=== PATIENT | female | born 1945 | race Caucasian/White ===

== ENCOUNTER 2016-09-26 18:46 | Observation (INO) | payer OTHER, MEDICARE ==
--- NOTE | 2016-09-26 19:25 | PDOC ---
History of Present Illness - General History Source: Patient Exam Limitations: No Limitations - History of Present Illness Initial Comments: 09/26/16 19:41 The patient is a 70 year old female with a significant past medical history of sciatica who presents to the ED with complaints of intermittent back, chest and neck pain for one hour. The patient reports she was sitting on her desk when she developed mid sternal chest pain radiating to her upper back pain that lasted for about 10 minutes. Patient describes her back and chest pain as achy. She then reports she developed sharp right sided neck pain radiating to her right jaw 10 minutes after. Patient states her symptoms are worsened when she sits and alleviated when standing. Upon evaluation patient reports her pain is resolved. She states she had lunch 5 hours prior to the start of present symptoms and has been home since. Denies a similar symptoms in the past. Denies diaphoresis. Denies palpitations or shortness of breath. Denies arm pain or jaw pain. Denies fevers or chills. Denies abdominal pain, nausea, vomiting, or diarrhea. Denies any other symptoms. PAST MEDICAL HISTORY: Sciatica PAST SURGICAL HISTORY: no significant history FAMILY HISTORY: no pertinent history SOCIAL HISTORY: Pt lives with family and is employed. MEDICATIONS: reviewed ALLERGIES: Ibuprofen (rash) General: No fevers or chills, no weakness, no weight loss HEENT: No change in vision. No sore throat,. No ear pain CardioVascular: + chest pain. No shortness of breath Respiratory:No cough, or wheezing. Gastrointestinal: no nausea, vomiting, diarrhea or constipation, No rectal bleeding Genitourinary: No dysuria, hematuria, or frequency Musculoskeletal: + back pain, neck pain. No joint or muscle swelling Neurologic: No headache, vertigo, dizziness or loss of consciousness Psychiatric: nor depression Skin: No rashes or easy bruising Endocrine: no increased thirst or abnormal weight change Allergic: no skin or latex allergy All other systems reviewed and normal General: Well-nourished well-developed individual, no acute distress HEENT: Throat: Normal, tonsils normal, no erythema or exudate Neck: Supple, no meningeal signs, no lymphadenopathy Eyes::Pupils equal reactive and round, extraocular motion intact Chest: Nontender to palpation Cardiac: S1-S2 normal, regular rate and rhythm, no murmurs rubs or gallops Respiratory: Lungs clear to auscultation bilateral Abdomen: Soft, nondistended, normal bowel sounds, nontender to palpation diffusely Extremities: Warm, dry, no cyanosis, clubbing, or edema Skin: No rashes Neuro: Alert and oriented x3, nonfocal exam, grossly intact, normal gait Psych: Normal mood and affect <Al Arroyo - Last Filed: 09/26/16 19:40> - General History Source: Patient Exam Limitations: No Limitations - History of Present Illness Initial Comments: 09/26/16 20:21 A portion of this note was documented by scribe services under my direction. I have reviewed the details of the note, within reason, and agree with the documentation. The case summary and management plan written by me. Assessment and plan: This is a 70-year-old female who comes in complaining of substernal chest pain radiating to her back and her right side of her jaw. Symptoms lasted approximately 20 minutes and then resolved. Here in the emergency room patient denies any pain. Patient had no associated symptoms. Patient only risk factor is a family history and her mother who had an CA at a young age. However her mother also was a heavy smoker. Patient's heart score is 4 patient's EKG showed normal sinus rhythm with questionable anterior old CA otherwise normal intervals and no acute ST T wave changes Patient will be admitted to a observation telemetry bed to rule her out as her heart score is 4. <Du Arshad I - Last Filed: 09/26/16 20:24> - General Chief Complaint: Chest Pain Stated Complaint: chest,neck,back pain Time Seen by Provider: 09/26/16 19:07 Past History <Al Arroyo - Last Filed: 09/26/16 19:40> - Past Medical History Other medical history: hrt - Psycho/Social/Smoking Cessation Hx Suicidal Ideation: No Smoking History: Never smoked Have you smoked in the past 12 months: No Information on smoking cessation initiated: No Hx Alcohol Use: No Drug/Substance Use Hx: No Substance Use Type: Alcohol <Du Arshad I - Last Filed: 09/26/16 20:24> - Past Medical History Allergies/Adverse Reactions: Allergies Allergy/AdvReac Type Severity Reaction Status Date / Time ibuprofen [From Advil] Allergy Hives Verified 09/26/16 19:01 Home Medications: Ambulatory Orders Estradiol [Minivelle] 1 each TD WEEKLY 09/26/16 Progesterone,Micronized [Crinone] 1.125 gm VG MONTHLY 09/26/16 *Physical Exam - Vital Signs Last Vital Signs Temp Pulse Resp BP Pulse Ox 98.3 F 87 20 148/87 98 09/26/16 19:00 09/26/16 19:00 09/26/16 19:00 09/26/16 19:00 09/26/16 19:00 <Al Arroyo - Last Filed: 09/26/16 19:40> - Vital Signs Last Vital Signs Temp Pulse Resp BP Pulse Ox 98.3 F 87 20 148/87 98 09/26/16 19:00 09/26/16 19:00 09/26/16 19:00 09/26/16 19:00 09/26/16 19:00 <Du Arshad I - Last Filed: 09/26/16 20:24> Heart Score/ECG Review - History History: Moderately suspicious - Electrocardiogram EKG: Normal - Age Age: >/= 65 - Risk Factors Risk Factors Heart Score: Yes Positive family hx of cardiac disease Based on the list above the patient has:: 1-2 risk factors - Troponin Troponin: </= normal limit - Score Heart Score - Total: 4 <Du Arshad I - Last Filed: 09/26/16 20:24> ED Treatment Course - LABORATORY CBC & Chemistry Diagram: 09/26/16 19:46 09/26/16 19:46 <Du Arshad I - Last Filed: 09/26/16 20:24> *DC/Admit/Observation/Transfer - Attestations Scribe Attestion: 09/26/16 19:41 Documentation prepared by Al Arroyo, acting as medical policy specialist for Du Arshad MD <Al Arroyo - Last Filed: 09/26/16 19:40> - Discharge Dispostion Admit: Yes <Du Arshad I - Last Filed: 09/26/16 20:24> Diagnosis at time of Disposition: Chest pain Qualifiers: Chest pain type: unspecified Qualified Code(s): R07.9 - Chest pain, unspecified
[2016-09-26] MEDS ORDERED: ACETAMINOPHEN 500 MG TABLET (FP) PO ONE (19:26)
[2016-09-26] MEDS ORDERED: ACETAMINOPHEN 325 MG TABLET (FP) ONE (19:36)
[2016-09-26 20:10] LABS: CPK(DFH) 101 IU/L (26-140)
[2016-09-26 20:10] LABS: ALK PHOS 42 U/L (32-92); ANION GAP 7 (8-16); BASOPHIL 0.4 % (0-2.0); BILIRUBIN,TOTAL 0.2 mg/dl (0.2-1.0); CALCIUM 9.5 mg/dl (8.4-10.2); CO2 27 mmol/L (22-28); EOSINOPHIL 1.5 % (0-4.5); GLUCOSE,RANDOM 97 mg/dl (74-106); MCH 32.8 pg (25.7-33.7); MCHC 34.3 g/dl (32.0-36.0); MEAN CELL VOLUME 95.6 fl (80-96); MEAN PLT VOLUME 10.1 fl (7.5-11.1); NEUTROPHILS 69.3 % (42.8-82.8); PLATELET COUNT 229 K/MM3 (134-434); RDW 11.7 % (11.6-15.6); SGOT/AST 20 U/L (10-42); SGPT/ALT 13 U/L (10-40); TOT PROT 6.9 g/dl (6.4-8.3); WHITE BLOOD COUNT 7.1 K/mm3 (4.0-10.8)
[2016-09-26 20:26] LABS: TROPONIN I (DFP) < 0.03 ng/ml (0.03-0.50)
[2016-09-26] MEDS ORDERED: diphenhydrAMINE HCL 50 MG CAPSULE PO ONE (21:04)
[2016-09-26] MEDS ORDERED: diphenhydrAMINE HCL 25 MG CAPSULE (FP) PO ONE (21:45)
[2016-09-26 23:19] VITALS: BMI 24.0
--- NOTE | 2016-09-26 23:35 | HP ---
CHIEF COMPLAINT: chest pain PCP: Dr. Bhavna Londono at [facility] HISTORY OF PRESENT ILLNESS: This is a 70 year old female with a past medical history of sciatica and shingles presented with chest pain. Pain has resolved since 930pm. Pt states pain was not exacerbated by movement, cough or deep breathing. States pain was midsternal and epigastric and radiated to back and then up to right ear. No further pain at present and denies any SOB, dizziness, palpitations, N/V/D. Pt was recently seen by PCP and application programmer analyst for contact dermatitis which she has been taking benadryl and triamcinolone cream x 3 days with improvement. ER course was notable for: (1) troponin neg x 1 (2) given tylenol for pain with relief Recent Travel: pt denies PAST MEDICAL HISTORY: sciatica shingles PAST SURGICAL HISTORY: pt denies Social History: Smoking: pt denies, mother was a heavy smoker in the house when she was a child Alcohol: 4 glasses of wine weekly Drugs: pt denies Family History: mother with ID age 49, first CVA/TIA age 59, age 77, also had BrCA, hypothyroid father age 77, dementia one brother with HTN, 3 other siblings no medical problems, + substance abuse issues Allergies ibuprofen [From Advil] Allergy (Verified 09/26/16 19:01) Hives HOME MEDICATIONS: 3 Medication Instructions Recorded Estradiol [Minivelle] 1 each TD WEEKLY 09/26/16 Progesterone,Micronized [Crinone] 1.125 gm VG MONTHLY 09/26/16 REVIEW OF SYSTEMS CONSTITUTIONAL: Absent: fever, chills, diaphoresis, generalized weakness, malaise, loss of appetite, weight change HEENT: Absent: rhinorrhea, nasal congestion, throat pain, throat swelling, difficulty swallowing, mouth swelling, ear pain, eye pain, visual changes CARDIOVASCULAR: Present: chest pain Absent: syncope, palpitations, irregular heart rate, lightheadedness, peripheral edema RESPIRATORY: Absent: cough, shortness of breath, dyspnea with exertion, orthopnea, wheezing, stridor, hemoptysis GASTROINTESTINAL: Absent: abdominal pain, abdominal distension, nausea, vomiting, diarrhea, constipation, melena, hematochezia GENITOURINARY: Absent: dysuria, frequency, urgency, hesitancy, hematuria, flank pain, genital pain MUSCULOSKELETAL: Absent: myalgia, arthralgia, joint swelling, back pain, neck pain SKIN: Absent: rash, itching, pallor HEMATOLOGIC/IMMUNOLOGIC: Absent: easy bleeding, easy bruising, lymphadenopathy, frequent infections ENDOCRINE: Absent: unexplained weight gain, unexplained weight loss, heat intolerance, cold intolerance NEUROLOGIC: Absent: headache, focal weakness or paresthesias, dizziness, unsteady gait, seizure, mental status changes, bladder or bowel incontinence PSYCHIATRIC: Absent: anxiety, depression, suicidal or homicidal ideation, hallucinations. PHYSICAL EXAMINATION Vital Signs - 24 hr 3 09/26/16 09/26/16 22:56 23:00 Temperature 97.9 F 97.9 F Pulse Rate 74 74 Respiratory 18 18 Rate Blood Pressure 124/62 124/62 O2 Sat by Pulse 100 Oximetry (%) GENERAL: Awake, alert, and fully oriented, in no acute distress. HEAD: Normal with no signs of trauma. EYES: Pupils equal, round and reactive to light, extraocular movements intact, sclera anicteric, conjunctiva clear. No lid lag. EARS, NOSE, THROAT: Ears normal, nares patent, oropharynx clear without exudates. Moist mucous membranes. NECK: Normal range of motion, supple without lymphadenopathy, JVD, or masses. LUNGS: Breath sounds equal, clear to auscultation bilaterally. No wheezes, and no crackles. No accessory muscle use. HEART: Regular rate and rhythm, normal S1 and S2 without murmur, rub or gallop. ABDOMEN: Soft, nontender, not distended, normoactive bowel sounds, no guarding, no rebound, no masses. No hepatomegaly or splenomegaly. MUSCULOSKELETAL: Normal range of motion at all joints. No bony deformities or tenderness. No CVA tenderness. UPPER EXTREMITIES: 2+ pulses, warm, well-perfused. No cyanosis. No clubbing. No peripheral edema. LOWER EXTREMITIES: 2+ pulses, warm, well-perfused. No calf tenderness. No peripheral edema. NEUROLOGICAL: Cranial nerves II-XII intact. Normal speech. Normal gait. PSYCHIATRIC: Cooperative. Good eye contact. Appropriate mood and affect. SKIN: Warm, dry, normal turgor, no lesions noted, normal capillary refill. + maculopapular rash on bilat lower legs, fading Laboratory Results - last 24 hr 3 09/26/16 09/26/16 09/26/16 19:40 19:46 19:46 WBC 7.1 RBC 4.24 Hgb 13.9 Hct 40.6 MCV 95.6 MCHC 34.3 RDW 11.7 Plt Count 229 MPV 10.1 Neutrophils % 69.3 Lymphocytes % 23.2 Monocytes % 5.6 Eosinophils % 1.5 Basophils % 0.4 Sodium 137 Potassium 4.0 Chloride 103 Carbon Dioxide 27 Anion Gap 7 L BUN 19 H Creatinine 1.0 Creat Clearance w eGFR 55.14 Random Glucose 97 Calcium 9.5 Total Bilirubin 0.2 AST 20 ALT 13 Alkaline Phosphatase 42 Creatine Kinase 101 Troponin I < 0.03 L Total Protein 6.9 Albumin 4.0 ECG: NSR, rate 72, QTC 453, No acute ST/T changes, ? septal infarct, age indetermined CXR: No obvious infiltrates or effusions, official read pending ASSESSMENT/PLAN: 70yF with PMH of sciatica and shingles presented with CP. She has been admitted for further observation. Chest pain - Heart score 4 - troponin neg x 1, trend x 2 more - if troponins neg, would DC home and refer to PCP for further o/p cardiac workup Contact dermatitis, improving - benadryl PRN DVT PPX - deferred, expected LOS <48h FEN - no IVF, tolerating po - repeat labs in am - regular diet Dispo: pt requires inpatient observation for management of her emergent condition. Visit type - Emergency Visit Emergency Visit: Yes ED Registration Date: 09/26/16 Care time: The patient presented to the Emergency Department on the above date and was hospitalized for further evaluation of their emergent condition. - New Patient This patient is new to me today: Yes Date on this admission: 09/26/16 - Critical Care Critical Care patient: No
[2016-09-27 04:09] LABS: TROPONIN I < 0.02 ng/ml (0.00-0.05)
[2016-09-27 06:19] VITALS: BP 112/57; PULSE 75; TEMP 98.4
[2016-09-27] MEDS ORDERED: diphenhydrAMINE HCL 25 MG CAPSULE (FP) PO PRN (06:59)
[2016-09-27 08:02] LABS: BASOPHIL 0.8 % (0-2.0); EOSINOPHIL 3.1 % (0-4.5); MCH 32.9 pg (25.7-33.7); MCHC 33.7 g/dl (32.0-36.0); MEAN CELL VOLUME 97.6 fl (80-96); MEAN PLT VOLUME 9.6 fl (7.5-11.1); NEUTROPHILS 51.8 % (42.8-82.8); PLATELET COUNT 218 K/MM3 (134-434); RDW 11.5 % (11.6-15.6)
[2016-09-27 08:30] LABS: COCKROFT - GAULT 46.767; PHOSPHOROUS 3.5 mg/dl (2.5-4.6)
[2016-09-27 11:53] LABS: CPK(DFH) 78 IU/L (26-140)
[2016-09-27 12:04] LABS: TROPONIN I (DFP) < 0.03 ng/ml (0.03-0.50)
--- NOTE | 2016-09-27 12:10 | HP ---
CHIEF COMPLAINT: PCP: HISTORY OF PRESENT ILLNESS: ER course was notable for: (1) (2) (3) Recent Travel: PAST MEDICAL HISTORY: PAST SURGICAL HISTORY: Social History: Smoking: Alcohol: Drugs: Family History: Allergies ibuprofen [From Advil] Allergy (Verified 09/26/16 19:01) Hives HOME MEDICATIONS: Home Medications Medication Instructions Recorded Estradiol [Minivelle] 1 each TD WEEKLY 09/26/16 Progesterone,Micronized [Crinone] 1.125 gm VG MONTHLY 09/26/16 REVIEW OF SYSTEMS CONSTITUTIONAL: Absent: fever, chills, diaphoresis, generalized weakness, malaise, loss of appetite, weight change HEENT: Absent: rhinorrhea, nasal congestion, throat pain, throat swelling, difficulty swallowing, mouth swelling, ear pain, eye pain, visual changes CARDIOVASCULAR: Absent: chest pain, syncope, palpitations, irregular heart rate, lightheadedness , peripheral edema RESPIRATORY: Absent: cough, shortness of breath, dyspnea with exertion, orthopnea, wheezing, stridor, hemoptysis GASTROINTESTINAL: Absent: abdominal pain, abdominal distension, nausea, vomiting, diarrhea, constipation, melena, hematochezia GENITOURINARY: Absent: dysuria, frequency, urgency, hesitancy, hematuria, flank pain, genital pain MUSCULOSKELETAL: Absent: myalgia, arthralgia, joint swelling, back pain, neck pain SKIN: Absent: rash, itching, pallor HEMATOLOGIC/IMMUNOLOGIC: Absent: easy bleeding, easy bruising, lymphadenopathy, frequent infections ENDOCRINE: Absent: unexplained weight gain, unexplained weight loss, heat intolerance, cold intolerance NEUROLOGIC: Absent: headache, focal weakness or paresthesias, dizziness, unsteady gait, seizure, mental status changes, bladder or bowel incontinence PSYCHIATRIC: Absent: anxiety, depression, suicidal or homicidal ideation, hallucinations. PHYSICAL EXAMINATION Vital Signs - 24 hr 09/26/16 09/26/16 09/27/16 22:56 23:00 01:09 Temperature 97.9 F 97.9 F 98 F Pulse Rate 74 74 64 Respiratory 18 18 18 Rate Blood Pressure 124/62 124/62 118/60 O2 Sat by Pulse 100 Oximetry (%) 09/27/16 09/27/16 09/27/16 05:09 06:18 08:34 Temperature 98.2 F 98.4 F Pulse Rate 68 75 Respiratory 18 18 18 Rate Blood Pressure 122/64 112/57 O2 Sat by Pulse 100 99 99 Oximetry (%) GENERAL: Awake, alert, and fully oriented, in no acute distress. HEAD: Normal with no signs of trauma. EYES: Pupils equal, round and reactive to light, extraocular movements intact, sclera anicteric, conjunctiva clear. No lid lag. EARS, NOSE, THROAT: Ears normal, nares patent, oropharynx clear without exudates. Moist mucous membranes. NECK: Normal range of motion, supple without lymphadenopathy, JVD, or masses. LUNGS: Breath sounds equal, clear to auscultation bilaterally. No wheezes, and no crackles. No accessory muscle use. HEART: Regular rate and rhythm, normal S1 and S2 without murmur, rub or gallop. ABDOMEN: Soft, nontender, not distended, normoactive bowel sounds, no guarding, no rebound, no masses. No hepatomegaly or splenomegaly. MUSCULOSKELETAL: Normal range of motion at all joints. No bony deformities or tenderness. No CVA tenderness. UPPER EXTREMITIES: 2+ pulses, warm, well-perfused. No cyanosis. No clubbing. No peripheral edema. LOWER EXTREMITIES: 2+ pulses, warm, well-perfused. No calf tenderness. No peripheral edema. NEUROLOGICAL: Cranial nerves II-XII intact. Normal speech. Normal gait. PSYCHIATRIC: Cooperative. Good eye contact. Appropriate mood and affect. SKIN: Warm, dry, normal turgor, no rashes or lesions noted, normal capillary refill. Laboratory Results - last 24 hr 09/27/16 09/27/16 09/27/16 03:00 07:50 07:50 WBC 6.0 RBC 4.09 Hgb 13.5 Hct 39.9 MCV 97.6 H MCHC 33.7 RDW 11.5 L Plt Count 218 MPV 9.6 Neutrophils % 51.8 D Lymphocytes % 37.5 D Monocytes % 6.8 Eosinophils % 3.1 D Basophils % 0.8 Sodium 134 L Potassium 3.9 Chloride 103 Carbon Dioxide 25 Anion Gap 6 L BUN 16 Creatinine 1.0 Random Glucose 95 Calcium 9.0 Phosphorus 3.5 Magnesium 2.0 Creatine Kinase 84 Troponin I < 0.02 09/27/16 07:50 WBC RBC Hgb Hct MCV MCHC RDW Plt Count MPV Neutrophils % Lymphocytes % Monocytes % Eosinophils % Basophils % Sodium Potassium Chloride Carbon Dioxide Anion Gap BUN Creatinine Random Glucose Calcium Phosphorus Magnesium Creatine Kinase 78 Troponin I < 0.03 L ASSESSMENT/PLAN:
--- NOTE | 2016-09-27 12:15 | DS ---
Physical Exam: SUBJECTIVE: Patient seen and examined. No chest pain, shortness of breath, palpitations, or any other complaints. OBJECTIVE: Troponin negative x 3 Vital Signs Period Temp Pulse Resp BP Sys/Baldwin Pulse Ox Last 24 Hr 97.9 F-98.4 F 64-75 18-18 112-124/57-64 99-100 PHYSICAL EXAM GENERAL: The patient is awake, alert, and fully oriented, in no acute distress. HEAD: Normal with no signs of trauma. EYES: PERRL, extraocular movements intact, sclera anicteric, conjunctiva clear. ENT: Ears normal, nares patent, oropharynx clear without exudates, moist mucous membranes. NECK: Trachea midline, full range of motion, supple. LUNGS: Breath sounds equal, clear to auscultation bilaterally, no wheezes, no crackles, no accessory muscle use. HEART: Regular rate and rhythm, S1, S2 without murmur, rub or gallop. ABDOMEN: Soft, nontender, nondistended, normoactive bowel sounds, no guarding, no rebound, no hepatosplenomegaly, no masses. EXTREMITIES: 2+ pulses, warm, well-perfused, no edema. NEUROLOGICAL: Cranial nerves II through XII grossly intact. Normal speech, gait not observed. PSYCH: Normal mood, normal affect. SKIN: Warm, dry, normal turgor, bilat LE blanching maculopapular rash (for which she is being treated by a master control engineer). LABS Laboratory Results - last 24 hr 09/27/16 09/27/16 09/27/16 03:00 07:50 07:50 WBC 6.0 RBC 4.09 Hgb 13.5 Hct 39.9 MCV 97.6 H MCHC 33.7 RDW 11.5 L Plt Count 218 MPV 9.6 Neutrophils % 51.8 D Lymphocytes % 37.5 D Monocytes % 6.8 Eosinophils % 3.1 D Basophils % 0.8 Sodium 134 L Potassium 3.9 Chloride 103 Carbon Dioxide 25 Anion Gap 6 L BUN 16 Creatinine 1.0 Random Glucose 95 Calcium 9.0 Phosphorus 3.5 Magnesium 2.0 Creatine Kinase 84 Troponin I < 0.02 09/27/16 07:50 WBC RBC Hgb Hct MCV MCHC RDW Plt Count MPV Neutrophils % Lymphocytes % Monocytes % Eosinophils % Basophils % Sodium Potassium Chloride Carbon Dioxide Anion Gap BUN Creatinine Random Glucose Calcium Phosphorus Magnesium Creatine Kinase 78 Troponin I < 0.03 L HOSPITAL COURSE: This is a healthy 70 year old female who presented to the ED yesterday complaining of chest pain radiating to the jaw. EKG was NSR with a normal rate and no ST or T wave changes. Troponins were negative x 3. CXR showed no acute cardiopulmonary process. The patient was monitored on telemetry overnight with no events noted. This morning, she denies any recurrence of chest pain and is eager to leave. She agrees to follow up with a manager play for outpatient stress testing. Return precautions were reviewed. Date of Admission:09/26/16 Date of Discharge: 09/27/16 Minutes to complete discharge: 35 Discharge Summary Reason For Visit: CHEST PAIN Current Active Problems Chest pain (Acute) Condition: Improved - Instructions Diet, Activity, Other Instructions: -Continue your prescribed medications -We recommend an outpatient stress test -Please follow up with a manager play next week for further evaluation ( referral enclosed) -Return here for recurrent chest pain, shortness of breath, or any other concerning symptoms Referrals: Lavonne Raza MD [Staff Physician] - Disposition: HOME - Home Medications Comprehensive Discharge Medication List: Ambulatory Orders Estradiol [Minivelle] 1 each TD WEEKLY 09/26/16 Progesterone,Micronized [Crinone] 1.125 gm VG MONTHLY 09/26/16 This patient is new to me today: Yes Date on this admission: 09/27/16 Emergency Visit: Yes ED Registration Date: 09/26/16 Care time: The patient presented to the Emergency Department on the above date and was hospitalized for further evaluation of their emergent condition. Critical Care patient: No - Discharge Referral Referred to [facility] Med P.C.: No
--- NOTE | 2016-09-27 16:15 | EKG ---
Test Reason : Blood Pressure : / mmHG Vent. Rate : 072 BPM Atrial Rate : 072 BPM P-R Int : 148 ms QRS Dur : 086 ms QT Int : 414 ms P-R-T Axes : 041 002 051 degrees QTc Int : 453 ms NORMAL SINUS RHYTHM SEPTAL INFARCT , AGE UNDETERMINED NO PREVIOUS ECGS AVAILABLE Confirmed by MD STEPHANIE, AVINASH ([id number]) on 09/27/2016 4:14:59 PM Referred By: MD EWING Confirmed By:AVINASH BROWN MD
== END 2016-09-27 12:30 | disposition home or self-care (01) ==
LOC: FER 18:46 → FM/S 21:39
PROVIDERS: ADMIT Internal Medicine; ATTEND Registered Nurse Emergency
DX: R07.9 Chest pain, unspecified (principal); L25.9 Unspecified contact dermatitis, unspecified cause; M54.30 Sciatica, unspecified side
CPT/HCPCS: 36415; 71010-TC; 80048; 80053; 82550; 83735; 84100; 84484; 85025; 93005; 99283-25; G0378